=== PATIENT | female | born 1955 | race Caucasian/White ===

== ENCOUNTER → 2016-12-08 | Day surgery (SDC) | payer BC ==
[~2016-12-08] MED LIST: ALPR.25 PO; ALPR0.25 PO; AMIT10TA6 PO; APREPITANT 40 MG CAP ONE; ATOR10 PO; AZITPOW PO; BIOT10004 PO; BUDE150T OR; BUPIVACAINE/EPINEPHRINE 0.25% 50 ML VIAL ONE; CARI350T19 PO; HYDR25SU4 RE; KETOROLAC TROMETHAMINE 30 MG/ML (IVP) VIAL IV PUSH ONE; LACTATED RINGER'S 1000 ML INJ 1,000 ML ONE; LIDOCAINE 1%/EPINEPHrine 1:100,000 SOLN 20 ML VIAL ONE; MEPERIDINE HCL 25 MG/ML VIAL ONE; MIDAZOLAM HCL 2 MG/2 ML VIAL ONE; MORPHINE SULFATE 4 MG/ML INJ ONE; MOTR200T PO; OMEP20TA OR; ONDANSETRON HCL 4 MG/2 ML VIAL IV PUSH ONE; PROB1TAB PO; PROPOFOL 200 MG/20 ML AMP IV ONE; PSEU30TA PO; WELLTAB39 PO; ZOLP10TA3 PO; ceFAZolin INJ 1,000 MG VIAL ONE
--- NOTE | 2016-12-08 16:19 | TN ---
cc: PAPITO LU M.D. DATE OF SURGERY: 12/08/2016 PREOPERATIVE DIAGNOSIS Recurrent right groin hernia. 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 PROCEDURE Repair of incarcerated right femoral hernia. Neurolysis of the right ilioinguinal nerve for chronic pain. ANESTHESIA General. SURGEON Dr. Lu. Senior Lead Java Developer Taryn CASTRO The CARGO CHECKER was present from beginning to the end of the case assisting in all portions of the procedure. It was necessary to have this individual in the room to assist in the above surgical procedure. The surgical procedure was assisted by the CARGO CHECKER. The CARGO CHECKER presence was necessary throughout the case for appropriate retraction, dissection, visualization, and resection of the important anatomical structures during the surgical procedure. The CARGO CHECKER was assisting throughout the entirety of the operation. The skill set of the CARGO CHECKER is medically and surgically necessary to safely complete the surgical procedure. During the surgical case the operating room surgical appliance fitter was working instrument table and passing instruments to the attending surgeon and CARGO CHECKER The CARGO CHECKER was directly assisting the operating surgeon and involved in the technical aspects of the surgical case. INDICATIONS This is a pleasant 61-year-old lady who had a right inguinal hernia repaired in the distant past. She noted a bulge in the groin area that was tender. Plans were made for above. PROCEDURE The patient was taken to the operating room and placed in the supine position. After anesthesia we then prepped and draped. A time-out is done. She is given preoperative antibiotics. We make an oblique incision overlying previous incision that is well-healed. We dissect down through Huy's fascia identifying the external oblique aponeurosis which is incised. The mesh can be palpated. Inferior to the inguinal ligament she has incarcerated femoral hernia with fatty tissue that is incarcerated here and it looks viable. This is not able to be reduced. We have to cut the inguinal ligament where the mesh had been secured to completely reduce this. Once this is reduced we then simply take the mesh that has well-healed in the fascia and reapproximate the inferior lateral portion of the mesh and fascia to the pubic tubercle and Garrick's ligament to obliterate the femoral canal. Prior to doing this we did place a piece of mesh to plug this defect as well. After this was done we then inspect the surgical site and there is excellent hemostasis. She has had problems with chronic pain since her surgery that clinically she had an entrapped ilioinguinal nerve. We dissect up superiorly just at the iliac superior spine and identify the ilioinguinal nerve. This is then divided and sacrificed and neurolysis. It is implanted in the internal oblique muscle. After this was done we then close with 3-0 Vicryl. The external oblique aponeurosis, Huy's with a 3-0 Vicryl and skin with 4-0 Vicryl. Steri-Strips were applied. Sterile bandage was applied. The patient tolerated the procedure well and returned to the recovery room with no immediate postop complications. Papito Lu MD [id number] /3:35 PM /3:58 PM RICHARD
== END | disposition home or self-care (01) ==
LOC: ESDC 11:48
PROVIDERS: ATTEND Surgery
DX: K41.30 Unilateral femoral hernia, with obstruction, without gangrene, not specified as recurrent (principal)
CPT/HCPCS: 00830; 49553; 64999; C1781; J0690; J1885; J2175; J2250; J2270; J2405; J3010; J7120; J8501